=== PATIENT | male | born 1935 | race Caucasian/White ===

== ENCOUNTER → 2016-04-21 | Outpatient (CLI) | payer MEDICARE, MEDICAID ==
[~2016-04-21] VITALS: Ht 177.8 cm; Wt 68.2 kg
[~2016-04-21] MED LIST: ADALAT CC30 MG PO; ASPIRIN 32325 MG/TAB PO; ASPIRIN 81M81 MG/TA2 PO; BUMEX 1MG TA1 MG/TA1 PO; CIPRO 500MG TA500 MG PO; CORDARONE200 MG/TAB PO; COREG 3.123.125 MG/T PO; ELIQUIS 5MG PO; KLOR-CON M2020 MEQ PO; LIPITOR20 MG PO; LOPRESSOR 225 MG/TAB PO; NORVASC 5MG5 MG/TAB PO; PEPCID 20MG TAB20 MG PO; PLAVIX 75MG TAB75 MG PO; PRINIVIL10 MG PO; PRINIVIL2.5 MG PO; PROCARDIA XL 3030 MG PO; PROTONIX20 MG PO; RENVELA800 MG PO; TYLENOL 325MG325 MG PO; TYLENOL 500MG500 MG PO; XARELTO15 MG PO
[2016-04-21 08:26] VITALS: BP 128/62; PULSE 52
[2016-04-21 09:05] VITALS: BP 145/65; PULSE 60
== END ==
LOC: COL.RAD 04-19 10:00
DX: Z49.01 Encounter for fitting and adjustment of extracorporeal dialysis catheter (principal)

== ENCOUNTER 2016-07-16 10:03 | Day surgery (SDC) | payer MEDICARE, MEDICAID ==
[~2016-07-16] VITALS: Ht 180.3 cm; Wt 72.7 kg
[2016-07-16] VITALS (449 sets, daily range): BP systolic 106–136; BP diastolic 52–77; PULSE 50–68; TEMP 97.4; O2SAT 68–100
[2016-07-16 10:43] LABS: MEAN CELL VOLUME 98 fl (80.0-100.0); MEAN CORPUSCULAR HGB CONC 33 g/dl (33.0-37.0); MEAN PLATELET VOLUME 10.2 fl (7.4-10.4); PLATELET COUNT 150 K/mm3 (130-400); RED BLOOD COUNT 3.44 M/mm3 (4.20-5.60); REDCELL DISTRIBUTION WIDTH-CV 13.1 % (11.5-14.5); WHITE BLOOD COUNT 11.2 K/mm3 (4.8-10.8)
[2016-07-16 10:49] LABS: INR 1.2 (0.8-3.0); PROTHROMBIN TIME 13.3 SECONDS (9.7-12.8)
[2016-07-16 10:51] LABS: HEMATOCRIT 33.8 % (42.0-52.0); MEAN CORPUSCULAR HEMOGLOBIN 32 pg (27.0-31.0)
[2016-07-16 10:55] LABS: CALCIUM 8.2 mg/dL (8.4-10.2); POTASSIUM 4.5 mmol/L (3.4-5.0)
[2016-07-16 11:36] LABS: CREATININE, serum 4.93 mg/dL (0.66-1.25)
[2016-07-17] VITALS (401 sets, daily range): BP systolic 129–132; BP diastolic 55–86; PULSE 55–74; TEMP 97.7–98.5; O2SAT 79–100
[2016-07-17 05:54] LABS: MEAN CELL VOLUME 98 fl (80.0-100.0); MEAN CORPUSCULAR HGB CONC 33 g/dl (33.0-37.0); MEAN PLATELET VOLUME 10.4 fl (7.4-10.4); PLATELET COUNT 161 K/mm3 (130-400); RED BLOOD COUNT 3.27 M/mm3 (4.20-5.60); REDCELL DISTRIBUTION WIDTH-CV 13.2 % (11.5-14.5); WHITE BLOOD COUNT 10.5 K/mm3 (4.8-10.8)
[2016-07-17 06:16] LABS: HEMATOCRIT 31.9 % (42.0-52.0); HEMOGLOBIN 10.5 g/dl (13.5-18.0); MEAN CORPUSCULAR HEMOGLOBIN 32 pg (27.0-31.0)
[2016-07-17 06:17] LABS: CALCIUM 8.6 mg/dL (8.4-10.2); POTASSIUM 5.1 mmol/L (3.4-5.0)
[2016-07-17 06:21] LABS: CREATININE, serum 6.24 mg/dL (0.66-1.25)
== END 2016-07-17 10:40 | disposition home or self-care (01) ==
LOC: COL.CAR 10:03 → IMCU 12:44 → COL.CAR 07-17 10:40
PROVIDERS: Internal Medicine Interventional Cardiology
DX: I25.10 Atherosclerotic heart disease of native coronary artery without angina pectoris (principal); I50.22 Chronic systolic (congestive) heart failure; I08.3 Combined rheumatic disorders of mitral, aortic and tricuspid valves; I51.7 Cardiomegaly; Z87.891 Personal history of nicotine dependence; Z80.9 Family history of malignant neoplasm, unspecified; Z79.01 Long term (current) use of anticoagulants
CPT/HCPCS: OP; C1760; C1769; C1874; C9600; J0583; J2250; J3010; Q9967

== ENCOUNTER 2017-02-04 11:38 | Day surgery (SDC) | payer MEDICARE, MEDICAID ==
[~2017-02-04] VITALS: Ht 180.3 cm; Wt 67.7 kg
[2017-02-04] VITALS (7 sets, daily range): BP systolic 93–122; BP diastolic 54–73; PULSE 70–107; TEMP 97.7–97.9
[2017-02-04 12:54] LABS: MEAN CELL VOLUME 101 fl (80.0-100.0); MEAN CORPUSCULAR HGB CONC 32 g/dl (33.0-37.0); MEAN PLATELET VOLUME 9.6 fl (7.4-10.4); PLATELET COUNT 152 K/mm3 (130-400); RED BLOOD COUNT 3.26 M/mm3 (4.20-5.60); WHITE BLOOD COUNT 8.8 K/mm3 (4.8-10.8)
[2017-02-04 12:58] LABS: HEMATOCRIT 32.8 % (42.0-52.0); HEMOGLOBIN 10.6 g/dl (13.5-18.0); MEAN CORPUSCULAR HEMOGLOBIN 33 pg (27.0-31.0)
[2017-02-04 13:06] LABS: CALCIUM 9.2 mg/dL (8.4-10.2); POTASSIUM 4.2 mmol/L (3.4-5.0)
[2017-02-04 13:07] LABS: INR 1.1 (0.8-3.0); PROTHROMBIN TIME 12.6 SECONDS (9.7-12.8)
[2017-02-04 13:08] LABS: CREATININE, serum 6.59 mg/dL (0.66-1.25)
[2017-02-04] MEDS ORDERED: PRINIVIL10 MG PO (13:39)
[2017-02-05 04:49] VITALS: BP 116/57; PULSE 99; TEMP 98.3
[2017-02-05 08:00] VITALS: BP 119/55; PULSE 71; TEMP 98.4
[2017-02-05] MEDS ORDERED: CEPHALEXIN500 M1 PO (10:24)
[2017-02-05] MEDS ORDERED: LANOXIN 0.25M0.25 MG PO (10:24)
== END 2017-02-05 11:35 | disposition home or self-care (01) ==
LOC: COL.CAR 11:38 → MEDICAL 16:02 → COL.CAR 02-05 11:35
PROVIDERS: Internal Medicine Interventional Cardiology
DX: I49.5 Sick sinus syndrome (principal); I48.91 Unspecified atrial fibrillation; I50.22 Chronic systolic (congestive) heart failure; I08.1 Rheumatic disorders of both mitral and tricuspid valves; N18.9 Chronic kidney disease, unspecified; Z79.01 Long term (current) use of anticoagulants; Z87.891 Personal history of nicotine dependence; Z82.3 Family history of stroke
CPT/HCPCS: OP; J0690; J2250; J3010; J7030

== ENCOUNTER 2018-07-25 06:30 | Outpatient (CLI) | payer MEDICARE, MEDICAID ==
[2018-07-25] VITALS (9 sets, daily range): BP systolic 101–126; BP diastolic 75–102; PULSE 67–115; TEMP 98.2
[~2018-07-25] VITALS: Ht 180.3 cm; Wt 81.0 kg
[~2018-07-25 06:30] MED LIST changes: +CEPHALEXIN500 M1 PO; +LANOXIN 0.25M0.25 MG PO
--- NOTE | 2018-07-25 08:04 | NUR ---
Pt to procedure at this time.report to Lm Harkins.
--- NOTE | 2018-07-25 08:24 | NUR ---
SEE MERGE FOR MEDICATION ADMINISTRATION TIMES SEDATION ASSESSMENT DATA DURING AND POST PROCEDURE.
--- NOTE | 2018-07-25 11:41 | NUR ---
Discharge instructions given to pt.Pt verbalizes understanding.INT removed,catheter tip intact.Pt escorted out via wheelchair by this nurse.
== END 2018-07-25 11:42 | disposition home or self-care (01) ==
LOC: COL.CAR 06:30
DX: I87.1 Compression of vein (principal); N18.6 End stage renal disease; Z86.73 Personal history of transient ischemic attack (TIA), and cerebral infarction without residual deficits; I50.9 Heart failure, unspecified; Z99.2 Dependence on renal dialysis; Z79.01 Long term (current) use of anticoagulants; Z87.891 Personal history of nicotine dependence
CPT/HCPCS: J1644; J2250; J3010; Q9967

== ENCOUNTER → 2018-10-31 | Outpatient (CLI) | payer MEDICARE, MEDICAID | LOC: COL.RAD 10-30 14:15 | DX: N28.89 Other specified disorders of kidney and ureter (principal); N26.1 Atrophy of kidney (terminal) ==

== ENCOUNTER → 2019-06-13 | Outpatient (CLI) | payer MEDICARE, MEDICAID | LOC: ZCOL.LAB 09:47 | DX: Z03.818 Encounter for observation for suspected exposure to other biological agents ruled out (principal) ==

== ENCOUNTER 2019-07-03 06:10 | Outpatient (CLI) | payer MEDICARE, MEDICAID ==
[~2019-07-03] VITALS: Ht 180.3 cm; Wt 83.0 kg
[2019-07-03] VITALS (8 sets, daily range): BP systolic 138–158; BP diastolic 95–110; PULSE 113–126; TEMP 97.3–98.2
[~2019-07-03 06:10] MED LIST changes: +ELIQUIS 2.5 PO; -ELIQUIS 5MG PO
[2019-07-03] MEDS ORDERED: COREG 3.123.125 MG/T PO (06:29)
[2019-07-03] MEDS ORDERED: LIPITOR 10MG10 MG PO (06:30)
--- NOTE | 2019-07-03 08:06 | NUR ---
I called radiology at approx 0715 to inform radiologist of pt's heart rate and rhythm. laborer driver nurses updated on pt's rate and rhythm also. Dr. Lopez came to see patient at about 0745. Pt had reported he had taken eliquis last evening, however after some thought pt reported to Dr. Lopez that he did not take any meds yesterday, and last took his eliquis tuesday evening.
--- NOTE | 2019-07-03 08:08 | NUR ---
SEE MERGE DOCUMENTATION FOR MEDICATION ADMINISTRATION TIMES AND INTRA/POST PROCEDURE SEDATION ASSESSMENTS. PT STATES TO PHYSICIAN THAT LAST ELIQUIS DOSE TAKEN ON 07/01/19. PHYSICIAN OK WITH PROCEEDING.
[2019-07-03] MEDS ORDERED: PRINIVIL5 MG PO (09:19)
--- NOTE | 2019-07-03 09:45 | NUR ---
Pt arrived back in [facility] at 0915, he is awake, alert, relaxing on stretcher, puncture site to left upper arm is dressed with bandaid. no evidence of bleeding or hematoma present. Dr. Lopez at bs at this time to recheck patient and discuss result of study with patient. Dr. Lopez made aware of pt's continued tachycardia and hypertension. Per Dr. Lopez it is okay if pt takes his medication for bp and hr when he gets home. pt states plans to take it as soon as he gets home. Pt denies any sob, dizziness, cp or other sx. Pt also instructed to restart his eliquis this evening.
--- NOTE | 2019-07-03 11:30 | NUR ---
Pt ready for discharge, puncture site to fistula in left upper arm remains free of bleeding and hematoma. iv dc'd with cath intact, dressing applied. I reviewed dc/fu instructions with pt, he reports will take his carvedilol and lisinopril when he gets home and will monitor his heart rate and bp, he will be seeing dialysis clinic tomorrow. He is also instructed to resume taking his eliquis this evening. Pt is ambulatory with fairly steady gait to exit, accompanied by this RN. Pt did deny ride in wheelchair. Pt did not receive moderate sedation today.
== END 2019-07-03 11:30 | disposition home or self-care (01) ==
LOC: COL.CAR 06:10
DX: T82.858A Stenosis of other vascular prosthetic devices, implants and grafts, initial encounter (principal); Z86.73 Personal history of transient ischemic attack (TIA), and cerebral infarction without residual deficits; Z99.2 Dependence on renal dialysis; I50.9 Heart failure, unspecified; N18.6 End stage renal disease; Z79.01 Long term (current) use of anticoagulants; Z87.891 Personal history of nicotine dependence
CPT/HCPCS: J1200; J1644; Q9967

== ENCOUNTER → 2019-07-10 | Outpatient (CLI) | payer MEDICARE, MEDICAID ==
[~2019-07-10] MED LIST changes: +LIPITOR 10MG10 MG PO; +PRINIVIL5 MG PO
== END ==
LOC: COL.VAS 10:00
DX: N18.6 End stage renal disease (principal)

== ENCOUNTER 2019-10-15 06:22 | Inpatient (IN) | payer MEDICARE, MEDICAID ==
[~2019-10-15] VITALS: Ht 180.3 cm; Wt 81.5 kg
[2019-10-15 07:19] LABS: BASO # 0.1 (0.0-0.2); BASO % 0.6 % (0.0-2.0); EOS # 0.6 (0.0-0.7); EOS % 5.5 % (0-4.0); GRAN # 7.4 (1.4-6.5); GRAN % 67.8 % (42.2-75.2); HEMATOCRIT 42.8 % (42.0-52.0); HEMOGLOBIN 13.9 g/dl (13.5-18.0); LYMPH # 1.7 (1.2-3.4); LYMPH % 15.8 % (20.0-51.0); MEAN CELL VOLUME 100 fl (80.0-100.0); MEAN CORPUSCULAR HEMOGLOBIN 32 pg (27.0-31.0); MEAN CORPUSCULAR HGB CONC 33 g/dl (33.0-37.0); MEAN PLATELET VOLUME 10.3 fl (7.4-10.4); MONO # 1.1 (0.1-0.6); PLATELET COUNT 153 K/mm3 (130-400); REDCELL DISTRIBUTION WIDTH-CV 15.3 % (11.5-14.5)
[2019-10-15 07:22] LABS: INR 1.2 (0.8-3.0); PROTHROMBIN TIME 13.2 SECONDS (9.7-12.8)
[2019-10-15 07:24] LABS: PARTIAL THROMBOPLASTIN TIME 33.9 SECONDS (26.0-37.0)
[2019-10-15 07:30] LABS: ALBUMIN 4.1 gm/dL (3.5-5.0); CALCIUM 9.7 mg/dL (8.4-10.2); CREATININE, serum 6.08 (0.66-1.25); MAGNESIUM 2.2 mg/dL (1.6-2.3); PHOSPHOROUS 5.2 mg/dL (2.5-4.5); POTASSIUM 4.8 mmol/L (3.4-5.0); TOTAL PROTEIN 7.8 gm/dL (6.4-8.2)
[2019-10-15 07:41] LABS: TROPONIN-I 0.031 ng/mL (0.000-0.035)
[2019-10-15 09:05] VITALS: BP 132/62; PULSE 87; TEMP 97.5
--- NOTE | 2019-10-15 09:47 | NUR ---
PT LAYING IN BED, ASSESSMENT PERFORMED, SPIDER BITE NOTED, PT AOX4, PT MUMBLES, LA EDEMETOUS PHYSICIAN AWARE, NO OTHER NEEDS AT THIS TIME.
[2019-10-15] MEDS ORDERED: AURYXIA1 GM PO (09:56)
[2019-10-15 11:18] VITALS: BP 118/72; PULSE 80; TEMP 98
--- NOTE | 2019-10-15 12:25 | NUR ---
PT TAKEN DOWN TO DIALYSIS VIA WHEELCHAIR WITH CHART.
[2019-10-15 16:00] VITALS: BP 118/61; PULSE 89
--- NOTE | 2019-10-15 16:22 | NUR ---
pt returned from dialysis
--- NOTE | 2019-10-15 17:44 | NUR ---
PT AOX4, DIALYSIS OCCURRED TODAY, PT REPORTS ITCHING AT SPIDER BITE SITE. PT LUE EDEMETOUS. PT PLEASANT, VITALS STABLE, HR STABLE SINCE ADMISSION TO FLOOR. NO OTHER PAIN OR DISCOMFORT, NO OTHER NEEDS AT THIS TIME.
--- NOTE | 2019-10-15 19:05 | NUR ---
Received report from Nunu. Seen patient awake, lying in bed. On left arm restriction. With dialysis fistula on left upper arm. With INT on right forearm. He denies pain. Call light within reach.
[2019-10-15 19:56] VITALS: BP 114/79; PULSE 78; TEMP 98.2
--- NOTE | 2019-10-15 20:00 | NUR ---
Pharmacists called to verify regarding dosage of Coreg. He said that it was usually twice a day but in [facility] it was once a day only. Verified to patient but he cannot remember how much Coreg is he taking. On patient's chart, he has list of medicines and Coreg was listed as once a day. Upon checking on doctor's note, it says there that they reduced the strength of Coreg due to falls and severe hypotension. This nurse tried to call back Pharmacy but they are already close. Will try to call them back benjamin or will endorse to day shift nurse.
[2019-10-16 00:20] VITALS: BP 113/75; PULSE 82; TEMP 97.9
[2019-10-16 03:16] VITALS: BP 123/78; PULSE 91; TEMP 97.6
--- NOTE | 2019-10-16 06:28 | NUR ---
Patient had uneventful night. He denies pain. Heart rate has been stable. Called back pharmacy to clarify Coreg and she said that she already fixed it as she saw the notes of Dr. Flaherty.
[2019-10-16 07:30] VITALS: BP 121/68; PULSE 95; TEMP 98.3
--- NOTE | 2019-10-16 08:08 | NUR ---
PT IN ROOM, DENIES PAIN OR DISCOMFORT, REFUSED TO ELEVATE LEFT ARM, REFUSED TO WEAR SCD'S DUE TO WEARING THEM ALL THROUGHOUT THE NIGHT, VITALS REVIEWED, MEDCIATONS GIVEN, IV FLUSHED, ASSESSMENT PERFORMED. AFIB RATE CONTROLLED AT THIS TIME. NO OTHER NEEDS.
--- NOTE | 2019-10-16 09:30 | NUR ---
RECIEVED CALL FROM TELE ABOUT ELEVATED HR IN 120'S. PT REPORTED JUST GETTING UP TO GO TO BATHROOM, SETTLED IN BED NOW, NOT REPORTING SYMTPOMS, HR GOING BACK DOWN.
--- NOTE | 2019-10-16 10:36 | NUR ---
SW met with the patient to discuss discharge plan. The patient lives in [place] with his , Avis (ph#[phone]). He reports independence with ADLs and does not have any DME. The patient reports that his PCP used to be Dr. Kemal Han, but that he does not have a PCP at this time and needs a new one. He states that he would be interested in a PCP in [place]. MIHCAEL provided the patient a list of providers in [place]. The patient would like some time to look the list over. The patient receives his medications through a [email or web address] mail order and at [facility]. He reports no difficulties obtaining his meds. The patient does not have advanced directives completed, but he was interested in obtaining a form for DPOA-HC. MICHAEL provided. The patient plans to return back home with his upon discharge. SW attempted to contact the patient's to review d/c plan. The number states that the number is disconnected, been changed, or out of network. MICHAEL then contacted and updated the patient's son, Edwar. Edwar provided MICHAEL with another phone number for Avis (ph#[phone]). Edwar reports that this phone may be out of minutes. SW attempted to contact that number. The number did not ring. SW to continue to follow.
[2019-10-16] MEDS ORDERED: CEPHALEXIN500 M1 PO (11:32)
[2019-10-16] MEDS ORDERED: DIGITEK0.125 MG PO (11:33)
--- NOTE | 2019-10-16 11:59 | NUR ---
First visit from the manager lsw. No needs right now.
--- NOTE | 2019-10-16 13:03 | NUR ---
PT LEFT ESCORTED BY ALEX CASTILLO. PT REFUSED WHEELCHAIR, PT BELONGINGS BROUGHT WITH PT. PT DISCHARGE EDUCATION PROVIDED, IV DISCONTINUED, NO QUESTIONS AT THIS TIME.
== END 2019-10-16 12:55 | disposition home or self-care (01) | DRG 308 ==
LOC: COL.ER 06:22 → MEDICAL 08:25
PROVIDERS: Emergency Medicine; ADMIT Internal Medicine Nephrology
PROC: 5A1D70Z Performance of Urinary Filtration, Intermittent, Less than 6 Hours Per Day (ICD-10-PCS; principal; 2019-10-15)
DX: I48.20 Chronic atrial fibrillation, unspecified (principal); N18.6 End stage renal disease; I50.23 Acute on chronic systolic (congestive) heart failure; I13.0 Hypertensive heart and chronic kidney disease with heart failure and stage 1 through stage 4 chronic kidney disease, or unspecified chronic kidney disease; N18.4 Chronic kidney disease, stage 4 (severe); N13.30 Unspecified hydronephrosis; D63.1 Anemia in chronic kidney disease; I95.9 Hypotension, unspecified; I25.10 Atherosclerotic heart disease of native coronary artery without angina pectoris; I42.8 Other cardiomyopathies; T63.331A Toxic effect of venom of brown recluse spider, accidental (unintentional), initial encounter; E78.5 Hyperlipidemia, unspecified; N40.0 Benign prostatic hyperplasia without lower urinary tract symptoms; Z79.01 Long term (current) use of anticoagulants; Z99.2 Dependence on renal dialysis; Z86.73 Personal history of transient ischemic attack (TIA), and cerebral infarction without residual deficits; Z85.828 Personal history of other malignant neoplasm of skin; Z87.891 Personal history of nicotine dependence
CPT/HCPCS: J1644; J2916; J7030

== ENCOUNTER 2019-10-25 09:43 | Day surgery (SDC) | payer MEDICARE, MEDICAID ==
[2019-10-25] VITALS (7 sets, daily range): BP systolic 112–192; BP diastolic 48–99; PULSE 63–85; TEMP 97.8–98.9
[~2019-10-25] VITALS: Ht 180.3 cm; Wt 79.0 kg
[~2019-10-25 09:43] MED LIST changes: +AURYXIA1 GM PO; +DIGITEK0.125 MG PO
[2019-10-25] MEDS ORDERED: LANOXIN 0.120.125 MG PO (10:36)
--- NOTE | 2019-10-25 10:43 | NUR ---
TO RM AT 0956- CALL LIGHT IN REACH SON WILL BE CALLED AT TIME OF BUYERS' AGENT.
[2019-10-25 10:52] LABS: CALCIUM 9.4 mg/dL (8.4-10.2); CREATININE, serum 4.34 (0.66-1.25); POTASSIUM 4.6 mmol/L (3.4-5.0)
--- NOTE | 2019-10-25 10:57 | NUR ---
DR STRONG INTO TALK WITH PATIENT AND STATED HE COULD GO HOME LONG HIS SON WOULD BE THER OVERNIGHT.
--- NOTE | 2019-10-25 13:45 | NUR ---
TO RM 1 PER CART FROM PACU. DROWSY, BUT ANSWERS QUESTIONS AND FALLS BACK TO SLEEP. DRESSING EXOFIN DRESSING CLEAN DRY AND INTACT. NO SIGNS OF PAIN OR DISCOMFORT. RESTING QUIETLY
--- NOTE | 2019-10-25 14:00 | NUR ---
MORE AWAKE AND TALKING WITH STAFF. RECEIVED WATER AND TAKING SIPS. CONTINUES TO DENY PAIN OR DISCOMFORT.
--- NOTE | 2019-10-25 14:15 | NUR ---
VSS. PATIENT ALERT AND LOOKING AROUND ROOM. PATIENT DRINKS WATER WITHOUT PROBLEMS. RIGHT ARM SITE IS CD&I.
--- NOTE | 2019-10-25 14:25 | NUR ---
REPORT GIVEN TO BLANQUITA JOHNSON
--- NOTE | 2019-10-25 14:35 | NUR ---
VSS ON ROOM AIR. PATIENT GIVEN COFFEE AND APPLESAUCE TO EAT. PATIENT DENIES C/O'S. 1440 PATIENT EATS APPLE SAUCE WITHOUT PROBLEMS. AND DRINKS COFFEE WITHOUT PROBLEMS. PATIENT STATES HIS SON LIVES 10 MILES AWAY. AND SON IS TAKING HIM HOME.
--- NOTE | 2019-10-25 14:45 | NUR ---
VSS. PATIENT DENIES DISCOMFORT AND NAUSEA. PATIENT TALKS WITHOUT STAFF.
--- NOTE | 2019-10-25 15:00 | NUR ---
VSS ON ROOM AIR. PATIENT ALERT AND TALKING. FISTULA SITE TO RIGHT ARM CD&I. 1510 DISCHARGE INSTRUCTIONS GIVEN VERBALLY AND DISCHARGE PACKET GIVEN TO PATIENT. QUESTIONS ANWSERED AND PATIENT VOICED UNDERSTANDING. IV SITE DC'D CATHETER INTACT. PRESSURE AND BANDAGE APPLIED. 1515 ASSISTED PATIENT WITH DRESSING. PATIENT WAITING FOR SON TO ARRIVE. 1535 PATIENT DISCHARGED PER WHEEL CHAIR ACCOMPANIED BY AMB STAFF TO PRIVATE VECHILE DRIVEN BY SON.
== END 2019-10-25 15:35 | disposition home or self-care (01) ==
LOC: SDCO 09:43
PROVIDERS: Surgery
DX: I13.2 Hypertensive heart and chronic kidney disease with heart failure and with stage 5 chronic kidney disease, or end stage renal disease (principal); N18.6 End stage renal disease; I50.9 Heart failure, unspecified; I87.1 Compression of vein; Z79.01 Long term (current) use of anticoagulants; E78.00 Pure hypercholesterolemia, unspecified; Z86.73 Personal history of transient ischemic attack (TIA), and cerebral infarction without residual deficits; N17.9 Acute kidney failure, unspecified; I25.10 Atherosclerotic heart disease of native coronary artery without angina pectoris; I48.91 Unspecified atrial fibrillation; M19.90 Unspecified osteoarthritis, unspecified site; Z99.2 Dependence on renal dialysis; Z85.828 Personal history of other malignant neoplasm of skin
CPT/HCPCS: J0690; J1100; J1644; J1885; J2405; J2704; J3010; J7030

== ENCOUNTER 2020-04-15 10:06 | Outpatient (CLI) | payer MEDICARE, MEDICAID ==
[2020-04-15] VITALS (7 sets, daily range): BP systolic 154–183; BP diastolic 76–99; PULSE 92–117; TEMP 98
[~2020-04-15] VITALS: Ht 180.3 cm; Wt 79.8 kg
[~2020-04-15 10:06] MED LIST changes: +LANOXIN 0.120.125 MG PO
--- NOTE | 2020-04-15 14:07 | NUR ---
SEE MERGE FOR ALL MEDICATION ADMINISTRATION TIMES, INTRA AND POST SEDATION ASSESSMENT
--- NOTE | 2020-04-15 14:30 | NUR ---
REport from Marcelle JOHNSON. Transferred by be from [employer]. VSS at baseline. Bandaid CD&I to right upper arm fistula
--- NOTE | 2020-04-15 15:32 | NUR ---
INT discontinued intact. Discharge instructions given
--- NOTE | 2020-04-15 16:00 | NUR ---
Transferred to private car by kevin
== END 2020-04-15 16:26 | disposition home or self-care (01) ==
LOC: COL.CAR 10:06
DX: T82.858A Stenosis of other vascular prosthetic devices, implants and grafts, initial encounter (principal); N18.6 End stage renal disease; I50.22 Chronic systolic (congestive) heart failure; Z99.2 Dependence on renal dialysis; Z85.828 Personal history of other malignant neoplasm of skin; Z86.73 Personal history of transient ischemic attack (TIA), and cerebral infarction without residual deficits; Z87.891 Personal history of nicotine dependence
CPT/HCPCS: C1725; C1769; C1894; J1644; J2250; J3010; Q9967

== ENCOUNTER 2020-09-17 12:13 | Outpatient (CLI) | payer MEDICARE, MEDICAID ==
[2020-09-17] VITALS (8 sets, daily range): BP systolic 152–199; BP diastolic 89–127; PULSE 92–116; TEMP 97.2
[~2020-09-17] VITALS: Ht 180.3 cm; Wt 77.9 kg
--- NOTE | 2020-09-17 14:13 | NUR ---
Pt to procedure at this time.report to NALDO<RN>
--- NOTE | 2020-09-17 15:44 | NUR ---
Pt returned from procedure,report from Lm Zamora.
--- NOTE | 2020-09-17 18:04 | NUR ---
Discharge instructions given to pt.pt verbalizes understanding.INT removed,cathetr tip intact.Pt escorted out via wheelchair by ALEX Sr.
== END 2020-09-17 18:13 ==
LOC: COL.CAR 12:13
DX: T82.858A Stenosis of other vascular prosthetic devices, implants and grafts, initial encounter (principal); N17.9 Acute kidney failure, unspecified; I50.21 Acute systolic (congestive) heart failure; Z20.822 Contact with and (suspected) exposure to COVID-19; Z85.828 Personal history of other malignant neoplasm of skin
CPT/HCPCS: C1725; C1769; C1894; J1644; Q9967

== ENCOUNTER 2021-06-16 10:47 | Outpatient (CLI) | payer MEDICARE, MEDICAID ==
[2021-06-16] VITALS (8 sets, daily range): BP systolic 102–139; BP diastolic 85–99; PULSE 101–120; TEMP 98.1
[~2021-06-16] VITALS: Ht 180.3 cm; Wt 74.8 kg
[2021-06-16] MEDS ORDERED: BUMEX2 MG PO (11:41)
[2021-06-16] MEDS ORDERED: RENVELA800 MG PO (11:42)
[2021-06-16] MEDS ORDERED: COUMADIN 1MG1 MG/TAB PO (11:42)
--- NOTE | 2021-06-16 14:16 | NUR ---
See merge for all medication administration, intervention, assessment, and vital sign times. Moderate sedation assessment completed prior to procedure, documented during procedure.
--- NOTE | 2021-06-16 17:32 | NUR ---
Pt has done well during his recovery. Pt has remained awake and alert, no evidence of bleeding at fistula puncture site. site remains covered wtih clean dry and intact dressing. I have reviewed dc and fu instructions with pt who verbalized understanding and denied questions. IV is dc'd with cath intact. Pt is up and around in room with steady gait with kraft. to exit via wheelchair.
== END 2021-06-16 18:29 | disposition home or self-care (01) ==
LOC: COL.CAR 10:47
DX: T82.858A Stenosis of other vascular prosthetic devices, implants and grafts, initial encounter (principal); N18.6 End stage renal disease; Z99.2 Dependence on renal dialysis; Z87.891 Personal history of nicotine dependence
CPT/HCPCS: C1725; C1769; C1894; J1644; J2250; J3010

== ENCOUNTER 2021-06-26 17:03 | Inpatient (IN) | payer MEDICARE, MEDICAID ==
[~2021-06-26] VITALS: Ht 180.3 cm; Wt 71.1 kg
[~2021-06-26 17:03] MED LIST changes: +BUMEX2 MG PO; +COUMADIN 1MG1 MG/TAB PO
[2021-06-26 17:53] LABS: BASO % 0.2 % (0.0-2.0); EOS # 0.1 K/mm3 (0.0-0.7); EOS % 0.7 % (0.0-4.0); GRAN # 11.5 K/mm3 (1.4-6.5); GRAN % 83.5 % (42.2-75.2); HEMATOCRIT 40.6 % (42.0-52.0); HEMOGLOBIN 13.6 g/dl (13.5-18.0); LYMPH # 0.8 K/mm3 (1.2-3.4); LYMPH % 5.4 % (20.0-51.0); MEAN CELL VOLUME 97 fl (80.0-100.0); MEAN CORPUSCULAR HEMOGLOBIN 33 pg (27-31); MEAN CORPUSCULAR HGB CONC 34 g/dl (33.0-37.0); MEAN PLATELET VOLUME 10.8 fl (7.4-10.4); MONO # 1.3 K/mm3 (0.1-0.6); MONO % 9.5 % (1.7-9.3); PLATELET COUNT 188 K/mm3 (130-400); RED BLOOD COUNT 4.17 M/mm3 (4.20-5.60)
[2021-06-26 18:12] LABS: ALBUMIN 3.5 gm/dL (3.4-4.8); BILIRUBIN,TOTAL 1.4 mg/dL (0.2-1.2); CALCIUM 9.2 mg/dL (8.4-10.2); CREATININE, serum 4.87 mg/dL (0.72-1.25); POTASSIUM 4.9 mmol/L (3.5-4.5)
[2021-06-26 18:22] LABS: TROPONIN-I 0.299 ng/mL (0.00-0.033)
[2021-06-26 19:26] LABS: ARTERIAL BLD GAS O2 SATURATION 96.5 % (92-100); ARTERIAL BLD GAS TCO2 CT 26.4; ARTERIAL BLOOD GAS BASE EXCESS 1.7 (-2-2); ARTERIAL BLOOD GAS HCO3 25.3 meq/L (22-26); ARTERIAL BLOOD GAS PCO2 36.5 mmHg (35-45); ARTERIAL BLOOD GAS PO2 85.8 mmHg (80-100); ARTERIAL BLOOD GAS pH 7.46 (7.35-7.45)
[2021-06-26 19:32] LABS: INR 1.5 (0.8-3.0)
[2021-06-26] MEDS ORDERED: COREG 6.256.25 MG/TA PO (20:56)
[2021-06-26] MEDS ORDERED: PRINIVIL5 MG PO (20:57)
[2021-06-26 21:30] VITALS: BP 136/94; PULSE 92; TEMP 97.7
--- NOTE | 2021-06-26 23:05 | NUR ---
Patient arrived to medical unit from ER at approximately 2130. Patient had IV fluids running. Disconnected IV fluids upon arrival to medical unit. Patient was incontinent, and agreeable to take off wet clothing. Skin care provided. Redness noted to left buttock, blanchable. Denied pain and discomfort. Had been on oxygen at 2 L/min via NC. RT turned down to 1 L/min via NC. LS CTA. HRI. Telemetry in place: paced, irregular. BSAx4. Abdomen flat. Patient thin, skin dry. Called and talked to Dr. Flaherty at apprixmately 2207 to discuss orders. Did not want IV fluid running, and thankful that fluids were stopped. Went over med rec, orders restarted/held per orders. Patient voices no questions, needs, or concerns at this time. In bed with call light within reach. Bed alarm on.
[2021-06-27] VITALS (9 sets, daily range): BP systolic 113–158; BP diastolic 62–90; PULSE 76–107; TEMP 97.5–98.4
--- NOTE | 2021-06-27 05:53 | NUR ---
Patient has been in bed with eyes closed. Denies pain and discomfort. Voices no questions, needs, or concerns at this time. In bed with call light within reach. Bed alarm on.
--- NOTE | 2021-06-27 07:09 | NUR ---
PT SLEEPING UPON ENTRY TO INTRODUCE SELF.
--- NOTE | 2021-06-27 09:59 | NUR ---
PT ALERT IN ROOM, FINISHING BREAKFAST. PT EXPRESSED PAIN IN BACK, PRN MEDICATION GIVEN PER ORDERS. AM MED PASS COMPLETED, ASSESSMENT COMPLETED TO BEST OF ABILITY. DIMINISHED LOBES BILATERALLY, EDEMA NOTED IN LEFT HAND. PT IN TOO MUCH PAIN TO ROLL FOR COCCYX ASSESSMENT, WILL TRY AFTER MEDICATION METABOLIZES. PT ABLE TO EXPRESS NEEDS, GIVEN WARM BLANKET. CALL LIGHT WITHIN REACH.
--- NOTE | 2021-06-27 11:52 | NUR ---
NOTIFIED GAYATRI WHEELER OF CRITICAL TROPONIN LAB RESULT 0.219
--- NOTE | 2021-06-27 12:03 | NUR ---
CALLED RADIOLOGY TO RELAY ECHO ORDERS, TOLD LAST ECHO WAS AT 1100 AND TECH WILL NOT BE BACK UNTIL TUESDAY AM.
[2021-06-27 12:05] LABS: BASO % 0.2 % (0.0-2.0); EOS # 0.1 K/mm3 (0.0-0.7); GRAN # 9.1 K/mm3 (1.4-6.5); GRAN % 81.6 % (42.2-75.2); HEMATOCRIT 40.7 % (42.0-52.0); HEMOGLOBIN 13.3 g/dl (13.5-18.0); LYMPH # 0.9 K/mm3 (1.2-3.4); LYMPH % 7.7 % (20.0-51.0); MEAN CELL VOLUME 99 fl (80.0-100.0); MEAN CORPUSCULAR HEMOGLOBIN 32 pg (27-31); MEAN CORPUSCULAR HGB CONC 33 g/dl (33.0-37.0); MEAN PLATELET VOLUME 10.6 fl (7.4-10.4); PLATELET COUNT 190 K/mm3 (130-400); RED BLOOD COUNT 4.11 M/mm3 (4.20-5.60)
--- NOTE | 2021-06-27 12:33 | NUR ---
Bag Turner offered a prayer and support with patient.
[2021-06-27 14:01] LABS: ALBUMIN 3.2 gm/dL (3.4-4.8); CALCIUM 9.1 mg/dL (8.4-10.2); CREATININE, serum 5.27 mg/dL (0.72-1.25); PHOSPHOROUS 5.9 mg/dL (2.3-4.7); POTASSIUM 4.6 mmol/L (3.5-4.5)
--- NOTE | 2021-06-27 14:29 | NUR ---
gas systems worker met with patient is discuss discharge plan. Patient states that he lives at home alone in [facility]. Patient reports to being fully independent with his ADL's and utilizes a cane to assist with mobility. Patient does not have home oxygen needs but is currently on oxygen in room. PCP is Dr. Arreguin and he utilizes [facility] for medications with no cost difficulty. Patient reports that he does not have a DPOA-HC. He is not and has one child; Edwar [phone]. Patient states that he does have HH services coming in to his home to work on PT/OT but could not remember which company it is. Discharge plan: Home w/ HH pending PT/OT
--- NOTE | 2021-06-27 15:30 | NUR ---
PATIENT TOLERATED HD TX WITH 1.2L OF FLUID REMOVED, ATTEMPTED INCREASED FLUID REMOVAL WITH RX BUT SETUP CLOTTED WITH 1HR 14MINS LEFT OF RX REMAINING. PATIENT'S BLOOD WAS RETURNED. DR. GREY NOTIFIED & OK TO DC TX EARLY FOR TODAY.
--- NOTE | 2021-06-27 17:37 | NUR ---
PT CONTINUES ON PLAN OF CARE, RECEIVED DIALYSIS TODAY. NO SIGNIFICANT CHANGES NOTED IN PT STATUS AT THIS TIME. PT ABLE TO AMBULATE TO WHEEL CHAIR USING CANE. PT DROWSY, AROUSABLE TO VERBAL CUES.
--- NOTE | 2021-06-27 18:10 | NUR ---
NOTIFIED BY TELEMONITOR TECH PT HAD RUN OF VTACH, 5 BEATS, NOW IN AFIB/AFLUTTER.
--- NOTE | 2021-06-27 21:00 | NUR ---
Pt taken down to CT in wheelchair. Off the tele monitor until returning to the room.
--- NOTE | 2021-06-27 22:50 | NUR ---
Pt drowsy, but alert to speech. Able to answer orientation questions correctly, but quickly falls back asleep. Reported back pain. Repositioned the pt in bed with assistance and adjusted the heating pad under his back. Pt reports relief and is now resting quietly. Continuing to monitor I&O and maintaining the 1500 fluid restriction. Pt has not voided yet this evening, will continue to assess. Shift assessment completed. Medications administered per orders and education provided. Spoke with pharmacy in regards to verifying a new coumadin order. The pharmacist requested a INR be drawn at 0500 and the coumadin dose will be dosed based off of the pt's INR value and given tomorrow evening. Pt tolerating PO. No edema noted. AV fistula in right arm is clean/dry and covered in gauze dressing. No edema/redness/drainage. Thrill palpated and bruit auscultated. Right upper arm restriction enforced. Left upper arm has previous fistula. Site is clean and dry. Scattered bruising and scabs noted on BLE. Scars noted on sacral area from fully healed previous wound. Continuing to turn and reposition pt every 2 hours. VS stable. Pt is currently in a-fib, running in the 70's. Denies SOB/diaphoresis/chest pain. Lungs sounds are dimished/clear/unlabored. No fluids currently running. Pt recieved newly ordered levaquin around 1900. Pt reports no questions, will continue to monitor.
--- NOTE | 2021-06-28 02:27 | NUR ---
Prn tylenol administered per orders for back pain and pt repositioned. Will reassess pain.
[2021-06-28 03:23] VITALS: BP 153/74; PULSE 92; TEMP 98.3
--- NOTE | 2021-06-28 04:52 | NUR ---
No adverse events overnight. Pt continues to be drowsy, but is alert to speech and oriented. Total output overnight was 100 ml. Pt reported back pain earlier this morning. Administered prn tylenol and repositioned pt and pt reported relief. VS remain stable. BP runs elevated. Pt satting in upper 90's on room air. Denies chest pain/SOB. Denies dizziness/lightheadedness. Pt reports no questions at this time, will continue to monitor.
--- NOTE | 2021-06-28 06:14 | NUR ---
Pt had another void. Total of 250 ml out overnight. 225 ml taken in PO.
[2021-06-28 06:52] LABS: BASO % 0.2 % (0.0-2.0); EOS # 0.1 K/mm3 (0.0-0.7); EOS % 1.1 % (0.0-4.0); GRAN # 8.6 K/mm3 (1.4-6.5); GRAN % 78.9 % (42.2-75.2); HEMATOCRIT 43.9 % (42.0-52.0); HEMOGLOBIN 13.8 g/dl (13.5-18.0); LYMPH # 0.9 K/mm3 (1.2-3.4); LYMPH % 8.4 % (20.0-51.0); MEAN CELL VOLUME 102 fl (80.0-100.0); MEAN CORPUSCULAR HEMOGLOBIN 32 pg (27-31); MEAN CORPUSCULAR HGB CONC 31 g/dl (33.0-37.0); MEAN PLATELET VOLUME 11.1 fl (7.4-10.4); MONO # 1.2 K/mm3 (0.1-0.6); MONO % 10.8 % (1.7-9.3); PLATELET COUNT 186 K/mm3 (130-400); RED BLOOD COUNT 4.29 M/mm3 (4.20-5.60); REDCELL DISTRIBUTION WIDTH-CV 14.1 % (11.5-14.5)
[2021-06-28 06:57] LABS: INR 1.4 (0.8-3.0)
[2021-06-28 07:12] LABS: ALBUMIN 3.3 gm/dL (3.4-4.8); CALCIUM 8.9 mg/dL (8.4-10.2); CREATININE, serum 4.22 mg/dL (0.72-1.25); PHOSPHOROUS 4.2 mg/dL (2.3-4.7); POTASSIUM 4.4 mmol/L (3.5-4.5)
[2021-06-28 07:13] VITALS: BP 146/77; PULSE 109; TEMP 97.8
[2021-06-28 11:29] VITALS: BP 129/96; PULSE 92; TEMP 97.6
[2021-06-28 15:13] VITALS: BP 141/97; PULSE 102; TEMP 97.4
[2021-06-28 20:49] VITALS: BP 132/85; PULSE 83; TEMP 97.9
--- NOTE | 2021-06-28 20:52 | NUR ---
Assessed pt's VS and the oxygen levels were sitting in the upper 80's. Placed pt on 2L NC and pt is now satting in upper 90's. Notified RT. Will continue to monitor and titrate as needed.
--- NOTE | 2021-06-28 22:54 | NUR ---
Pt alert and oriented this evening, slightly drowsy. Denies pain. Pt voided 100 ml into urinal. Also had a small incontinent void. Repositioned pt in bed and turned. Heating pad currently on. Monitoring I&O and enforcing the 1500 fluid restriction. Enforcing ALONSO restriction. Shift assessment performed. Medications administered per orders and education provided. Pt has small scarring on the sacral area from a fully healed wound. Continuing to reposition pt every 2 hours. Pt was satting in the upper 80's at 2000, placed pt on 2L NC and pt is now satting above 95%. VS stable. HR is running in 90's. AV fistula on ALONSO is covered in gauze dressing that is clean/dry. Thrill palpated and bruit auscultated. Lungs sound clear. No pitting edema noted. Pt reports no questions at this time, will continue to monitor.
[2021-06-29] VITALS (12 sets, daily range): BP systolic 125–161; BP diastolic 61–96; PULSE 75–93; TEMP 97.4–98.7
--- NOTE | 2021-06-29 04:45 | NUR ---
No adverse events overnight. Alert and oriented, still drowsy, resting now. Pt NPO since 0000. Monitoring I&O, maintaining fluid restrcition. SCD's on. Pt voided approximately 100 ml overnight with one small incontinent void as well. VS stable. BP runs elevated. 2L NC remains on, pt satting in upper 90%. Continuing to reposition pt every 2 hours. Pt reports no questions at this time, will continue to monitor.
[2021-06-29 07:04] LABS: BASO % 0.2 % (0.0-2.0); EOS # 0.2 K/mm3 (0.0-0.7); EOS % 1.6 % (0.0-4.0); GRAN % 70.4 % (42.2-75.2); HEMATOCRIT 43.7 % (42.0-52.0); HEMOGLOBIN 14.3 g/dl (13.5-18.0); LYMPH # 1.3 K/mm3 (1.2-3.4); LYMPH % 13.3 % (20.0-51.0); MEAN CELL VOLUME 101 fl (80.0-100.0); MEAN CORPUSCULAR HEMOGLOBIN 33 pg (27-31); MEAN CORPUSCULAR HGB CONC 33 g/dl (33.0-37.0); MEAN PLATELET VOLUME 10.6 fl (7.4-10.4); MONO # 1.4 K/mm3 (0.1-0.6); PLATELET COUNT 179 K/mm3 (130-400); RED BLOOD COUNT 4.34 M/mm3 (4.20-5.60); REDCELL DISTRIBUTION WIDTH-CV 13.9 % (11.5-14.5)
--- NOTE | 2021-06-29 07:07 | NUR ---
appears to be dozing but awakens easily, bedside shift report received from ALEX Marin
[2021-06-29 07:40] LABS: ALBUMIN 3.2 gm/dL (3.4-4.8); CALCIUM 8.7 mg/dL (8.4-10.2); CREATININE, serum 5.27 mg/dL (0.72-1.25); PHOSPHOROUS 4.4 mg/dL (2.3-4.7); POTASSIUM 4.3 mmol/L (3.5-4.5)
--- NOTE | 2021-06-29 08:15 | NUR ---
called asking to order breakfast, explained to him he needs to not eat for a test later, therapy in to work with patient
--- NOTE | 2021-06-29 08:45 | NUR ---
to rn cardiac cath for myrna scan
--- NOTE | 2021-06-29 09:49 | NUR ---
remains out of room for myrna scan
--- NOTE | 2021-06-29 10:20 | NUR ---
returned from myrna scan and taken directly to dialysis, son here to visit
--- NOTE | 2021-06-29 10:49 | NUR ---
in dialysis and son in to visit, given am meds, will complete assessment after dialysis
--- NOTE | 2021-06-29 13:38 | NUR ---
Patient tolerated Hd tx with 4.9L of fluid removed today. Next planned HD tx on Tuesday07/01/21 @ 0830.
--- NOTE | 2021-06-29 14:04 | NUR ---
returned from dialysis and assited into chair, is too tired right now to eat, son at bedside
--- NOTE | 2021-06-29 14:18 | NUR ---
report given to ALEX Ventura
--- NOTE | 2021-06-29 14:26 | NUR ---
social worker palliative care in visiting with patient and his son
--- NOTE | 2021-06-29 14:42 | NUR ---
PT is recommending that the patient will likely need IPR. SW met with the patient and his son, Edwar, to discuss their recommendation. The patient appeared sleepy and would fall asleep during conversation. Edwar agrees that the patient will likely need rehab before going straight home. He is interested in our IPR and the local facilities. Edwar confirms that he is the patient's only child. He states that he lives in [place] and planned on returning back to [facility] for work. He plans to come back to the [facility] this weekend. MICHAEL consulted IPR Director. MICHAEL contacted and faxed a referral to [facility], [facility], and [facility]. Awaiting screens. *Discharge plan: post-acute rehab*
--- NOTE | 2021-06-29 18:31 | NUR ---
Nurse encouraged the patient to eat dinner, the patient ate 2 bites of dinner. A&Ox3. VSS. IV CDI, fluids infusing. Reports pain in back r/t laying in bed. Call light within reach. Bed alarm on
--- NOTE | 2021-06-30 02:15 | NUR ---
Report received from ALEX Ventura. Patient had dialysis 06/29, returned to room before the start of material handler 1st shift. Pt has been tired throughout the shift. Pt did not eat much of his evening meal and has no consumed many oral fluids. Full body assessment and medication administration completed without difficulty. Patient is A&Ox4 and has been pleasant. IV in L shoulder is currently flushing well, no fluids are running at this time due to fluid restriction. Pt on tele and has kept a normal sinus rhythm thus far this shift. Patient has had no complaints of pain and has had intermittent heat to his upper back for comfort. Pt has had minimal urine output thus far, 4.9 L removed from dialysis 06/29. PCT bladder scanned pt and approximately 310ml of urine was detected; discussed with charge nurse and she determined that no intervention was needed at this time. Pt denies the need to urinate and feels no discomfort. All other needs met at this time, call light within reach.
[2021-06-30 04:16] VITALS: BP 126/98; PULSE 93; TEMP 98.1
[2021-06-30 07:02] LABS: BASO % 0.2 % (0.0-2.0); EOS # 0.2 K/mm3 (0.0-0.7); EOS % 1.4 % (0.0-4.0); GRAN # 8.9 K/mm3 (1.4-6.5); GRAN % 76.5 % (42.2-75.2); HEMATOCRIT 47.1 % (42.0-52.0); HEMOGLOBIN 15.4 g/dl (13.5-18.0); LYMPH # 1.1 K/mm3 (1.2-3.4); LYMPH % 9.7 % (20.0-51.0); MEAN CELL VOLUME 99 fl (80.0-100.0); MEAN CORPUSCULAR HEMOGLOBIN 32 pg (27-31); MEAN CORPUSCULAR HGB CONC 33 g/dl (33.0-37.0); MEAN PLATELET VOLUME 10.6 fl (7.4-10.4); MONO # 1.4 K/mm3 (0.1-0.6); MONO % 11.6 % (1.7-9.3); PLATELET COUNT 180 K/mm3 (130-400); RED BLOOD COUNT 4.76 M/mm3 (4.20-5.60); REDCELL DISTRIBUTION WIDTH-CV 13.8 % (11.5-14.5)
[2021-06-30 07:22] LABS: ALBUMIN 3.2 gm/dL (3.4-4.8); CREATININE, serum 4.2 mg/dL (0.72-1.25); PHOSPHOROUS 3.9 mg/dL (2.3-4.7); POTASSIUM 4.4 mmol/L (3.5-4.5)
[2021-06-30 08:07] VITALS: BP 148/81; PULSE 70; TEMP 97.8
--- NOTE | 2021-06-30 09:19 | NUR ---
PT RESTING IN BED. MORNING MEDICATIONS GIVEN. SHIFT ASSESSMENT COMPLETED. PT COMPLAINING OF BACK PAIN. BED CHANGE COMPLETED. WILL CONTINUE TO MONITOR.
[2021-06-30 11:56] VITALS: BP 141/73; PULSE 86; TEMP 97.9
--- NOTE | 2021-06-30 14:17 | NUR ---
MICHAEL confirmed with ROZINA Wallis, with Dr. Flaherty that the patient's chair time is M/W/F 2:45-6:30 PM. SW notified and faxed updates to [facility], [facility], and [facility]. Awaiting screens.
[2021-06-30 16:22] VITALS: BP 155/83; PULSE 80; TEMP 98.2
--- NOTE | 2021-06-30 19:00 | NUR ---
RECEIVED CHANGE OF SHIFT REPORT FROM DAY SHIFT RN.
[2021-06-30 20:55] VITALS: BP 117/70; BP 183/93; PULSE 80; PULSE 88; TEMP 97.5; TEMP 97.8
[2021-06-30 23:21] VITALS: BP 137/77; PULSE 76; TEMP 99.5
[2021-07-01 03:47] VITALS: BP 148/78; BP 248/78; PULSE 115; TEMP 97.5
[2021-07-01 03:52] VITALS: PULSE 98
[2021-07-01 05:59] LABS: BASO % 0.2 % (0.0-2.0); EOS # 0.2 K/mm3 (0.0-0.7); EOS % 1.8 % (0.0-4.0); GRAN # 8.9 K/mm3 (1.4-6.5); GRAN % 73.4 % (42.2-75.2); HEMATOCRIT 47.6 % (42.0-52.0); HEMOGLOBIN 15.3 g/dl (13.5-18.0); LYMPH # 1.5 K/mm3 (1.2-3.4); LYMPH % 12.8 % (20.0-51.0); MEAN CELL VOLUME 100 fl (80.0-100.0); MEAN CORPUSCULAR HEMOGLOBIN 32 pg (27-31); MEAN CORPUSCULAR HGB CONC 32 g/dl (33.0-37.0); MEAN PLATELET VOLUME 10.1 fl (7.4-10.4); MONO # 1.4 K/mm3 (0.1-0.6); MONO % 11.4 % (1.7-9.3); PLATELET COUNT 164 K/mm3 (130-400); RED BLOOD COUNT 4.77 M/mm3 (4.20-5.60); REDCELL DISTRIBUTION WIDTH-CV 13.9 % (11.5-14.5)
[2021-07-01 06:11] LABS: INR 1.4 (0.8-3.0); PROTHROMBIN TIME 15.7 SECONDS (9.7-12.8)
[2021-07-01 06:18] LABS: ALBUMIN 3.1 gm/dL (3.4-4.8); CALCIUM 9.1 mg/dL (8.4-10.2); CREATININE, serum 4.88 mg/dL (0.72-1.25); PHOSPHOROUS 3.7 mg/dL (2.3-4.7); POTASSIUM 4.4 mmol/L (3.5-4.5)
--- NOTE | 2021-07-01 06:39 | NUR ---
CHANGE OF SHIFT REPORT GIVEN TO DAY SHIFT DARSHAN JOHNSON.
[2021-07-01 07:55] VITALS: BP 124/79; PULSE 115; TEMP 97.8
--- NOTE | 2021-07-01 09:19 | NUR ---
PT RESTING IN BED. MORNING MEDICATIONS GIVEN. SHIFT ASSESSSMENT COMPLETED. PT COMPLAINING ONLY OF BACK PAIN. PT AMBULATING WELL THIS AM. IS AT DIALYSIS AT THIS TIME. WILL CONTINUE TO MONITOR.
[2021-07-01] MEDS ORDERED: LEVAQUIN 5500 MG/TA1 PO (11:55)
[2021-07-01 12:00] VITALS: BP 113/85; PULSE 58; TEMP 97.1
[2021-07-01 12:49] VITALS: BP 134/75; PULSE 89; TEMP 97.1
--- NOTE | 2021-07-01 13:34 | NUR ---
PATIENT TOLERATED HD TX WITH 4L OF FLUID REMOVED TODAY. NEXT PLANNED HD TX ON Tuesday07/03/21 @ [facility] IN [place].
--- NOTE | 2021-07-01 14:19 | NUR ---
[facility] and [facility] both report that they would not be able to accomodate the patient's current chair time. Ghassan, at [facility], reports that they are able to accomodate the chair time and accept the patient today. MICHAEL met with the patient to update. The patient is agreeable to going to [facility]. MICHAEL presented and read the IM form outloud to the patient. The patient verbalized understanding and of discharge today and signed the form. MICHAEL placed a copy in the patient's room. MICHAEL contacted and updated the patient's son, Edwar. Edwar is also in agreement to the plan. He inquired about transportation services to dialysis after the patient returns home from [facility]. MICHAEL informed him how the patient has Medicaid and they typically provide transportation services. Edwar verbalized understanding. The patient is to discharge today, 07/01, to [facility] for a skilled stay. Transportation was scheduled at 1400, via [facility]. MICHAEL informed the patient, his RN, and son of the time. No additional needs at this time.
--- NOTE | 2021-07-01 14:47 | NUR ---
IV INFILTRATED WITH LEVAQUIN INFUSING. IV D/C, PLANNING TO D/C PT SOON.
--- NOTE | 2021-07-01 15:43 | NUR ---
PT ESCORTED DOWN WITH [facility]. WILL D/C FROM SYSTEM.
== END 2021-07-01 15:43 | DRG 871 ==
LOC: COL.ER 17:03 → MEDICAL 19:13
PROVIDERS: Nurse Practitioner Family; Registered Nurse; ADMIT Internal Medicine Nephrology
PROC: 5A1D70Z Performance of Urinary Filtration, Intermittent, Less than 6 Hours Per Day (ICD-10-PCS; principal; 2021-07-01)
DX: A41.9 Sepsis, unspecified organism (principal); N18.6 End stage renal disease; S22.089A Unspecified fracture of T11-T12 vertebra, initial encounter for closed fracture; I13.2 Hypertensive heart and chronic kidney disease with heart failure and with stage 5 chronic kidney disease, or end stage renal disease; I42.0 Dilated cardiomyopathy; I48.20 Chronic atrial fibrillation, unspecified; J98.11 Atelectasis; I50.22 Chronic systolic (congestive) heart failure; R09.89 Other specified symptoms and signs involving the circulatory and respiratory systems; M48.061 Spinal stenosis, lumbar region without neurogenic claudication; D64.9 Anemia, unspecified; E78.5 Hyperlipidemia, unspecified; I48.0 Paroxysmal atrial fibrillation; N40.0 Benign prostatic hyperplasia without lower urinary tract symptoms; I27.20 Pulmonary hypertension, unspecified; M19.90 Unspecified osteoarthritis, unspecified site; R65.20 Severe sepsis without septic shock; I08.1 Rheumatic disorders of both mitral and tricuspid valves; Z20.822 Contact with and (suspected) exposure to COVID-19; Z79.01 Long term (current) use of anticoagulants; Z86.73 Personal history of transient ischemic attack (TIA), and cerebral infarction without residual deficits; Z85.828 Personal history of other malignant neoplasm of skin; Z87.891 Personal history of nicotine dependence; Z99.2 Dependence on renal dialysis
CPT/HCPCS: A9500; J1644; J1956; J2785; J7030

== ENCOUNTER 2021-08-31 15:00 | Emergency (ER) | payer MEDICARE, MEDICAID ==
[~2021-08-31] VITALS: Ht 180.3 cm; Wt 75.0 kg
[~2021-08-31 15:00] MED LIST changes: +COREG 6.256.25 MG/TA PO; +LEVAQUIN 5500 MG/TA1 PO
[2021-08-31 15:03] VITALS: TEMP 97.1
[2021-08-31 16:33] LABS: BASO # 0.1 K/mm3 (0.0-0.2); BASO % 0.4 % (0.0-2.0); EOS # 0.3 K/mm3 (0.0-0.7); EOS % 1.8 % (0.0-4.0); GRAN # 11.6 K/mm3 (1.4-6.5); GRAN % 79.4 % (42.2-75.2); HEMATOCRIT 35.4 % (42.0-52.0); HEMOGLOBIN 11.6 g/dl (13.5-18.0); LYMPH # 1.2 K/mm3 (1.2-3.4); LYMPH % 8.2 % (20.0-51.0); MEAN CELL VOLUME 97 fl (80.0-100.0); MEAN CORPUSCULAR HEMOGLOBIN 32 pg (27-31); MEAN CORPUSCULAR HGB CONC 33 g/dl (33.0-37.0); MEAN PLATELET VOLUME 10.5 fl (7.4-10.4); MONO # 1.5 K/mm3 (0.1-0.6); MONO % 9.9 % (1.7-9.3); PLATELET COUNT 225 K/mm3 (130-400); RED BLOOD COUNT 3.64 M/mm3 (4.20-5.60); REDCELL DISTRIBUTION WIDTH-CV 14.1 % (11.5-14.5)
[2021-08-31 16:43] LABS: INR 1.2 (0.8-3.0); PROTHROMBIN TIME 13.3 SECONDS (9.7-12.8)
[2021-08-31 16:46] LABS: CALCIUM 9.1 mg/dL (8.4-10.2); CREATININE, serum 4.93 mg/dL (0.72-1.25); POTASSIUM 4.4 mmol/L (3.5-4.5)
[2021-08-31 17:52] VITALS: BP 141/89; PULSE 87
== END 2021-08-31 17:55 | disposition home or self-care (01) ==
LOC: COL.ER 15:00
PROVIDERS: Personal Emergency Response Attendant
DX: S60.512A Abrasion of left hand, initial encounter (principal); S60.511A Abrasion of right hand, initial encounter; S00.01XA Abrasion of scalp, initial encounter; N18.9 Chronic kidney disease, unspecified; I50.9 Heart failure, unspecified; Z79.01 Long term (current) use of anticoagulants; W18.30XA Fall on same level, unspecified, initial encounter

== ENCOUNTER 2021-09-07 10:13 | Emergency (ER) | payer MEDICARE, MEDICAID ==
[~2021-09-07] VITALS: Ht 180.3 cm; Wt 75.0 kg
[2021-09-07 10:20] VITALS: TEMP 98.9
[2021-09-07 10:45] VITALS: BP 142/91; PULSE 96
== END 2021-09-07 10:33 ==
LOC: COL.ER 10:13
DX: S50.312A Abrasion of left elbow, initial encounter (principal); S50.311A Abrasion of right elbow, initial encounter; N18.9 Chronic kidney disease, unspecified; S80.812A Abrasion, left lower leg, initial encounter; S80.811A Abrasion, right lower leg, initial encounter; Z28.310 Unvaccinated for COVID-19; Z99.2 Dependence on renal dialysis; W01.0XXA Fall on same level from slipping, tripping and stumbling without subsequent striking against object, initial encounter; Y92.009 Unspecified place in unspecified non-institutional (private) residence as the place of occurrence of the external cause; S00.91XA Abrasion of unspecified part of head, initial encounter

== ENCOUNTER 2021-09-07 15:18 | Emergency (ER) | payer MEDICARE, MEDICAID ==
[~2021-09-07] VITALS: Ht 165.1 cm; Wt 75.0 kg
[2021-09-07 15:23] VITALS: BP 117/86; TEMP 97.4
[2021-09-07 16:18] LABS: BASO # 0.1 K/mm3 (0.0-0.2); BASO % 0.4 % (0.0-2.0); EOS # 0.7 K/mm3 (0.0-0.7); EOS % 4.8 % (0.0-4.0); GRAN # 10.1 K/mm3 (1.4-6.5); GRAN % 74.3 % (42.2-75.2); HEMATOCRIT 39.8 % (42.0-52.0); HEMOGLOBIN 13.1 g/dl (13.5-18.0); LYMPH # 1.3 K/mm3 (1.2-3.4); LYMPH % 9.5 % (20.0-51.0); MEAN CELL VOLUME 95 fl (80.0-100.0); MEAN CORPUSCULAR HEMOGLOBIN 31 pg (27-31); MEAN CORPUSCULAR HGB CONC 33 g/dl (33.0-37.0); MEAN PLATELET VOLUME 9.4 fl (7.4-10.4); MONO # 1.4 K/mm3 (0.1-0.6); MONO % 10.5 % (1.7-9.3); PLATELET COUNT 289 K/mm3 (130-400); REDCELL DISTRIBUTION WIDTH-CV 14.2 % (11.5-14.5)
--- NOTE | 2021-09-07 16:35 | NUR ---
mold worker notified by ED staff that the patient was here for a visit this morning, left to go to dialysis and is now on his way back via EMS. Patient has been previously seen in this ER for a fall on 08/31. SW met with patient who verbalized " my legs make me fall". Verified with the patient that he does live at home alone and utilizes a walker to assist with ambulation. When asked if he was still seeing for PCP needs, the patient replied " i haven't seen him in years". States he only see's for healthcare needs. Patient is willing to seek placement for therapy but verbalizes that he does not want to go back to [facility]. He would like a referral faxed to [facility]. Patient's clinical information faxed to [facility].
[2021-09-07 16:39] LABS: ALBUMIN 3.6 gm/dL (3.4-4.8); BILIRUBIN,TOTAL 0.9 mg/dL (0.2-1.2); CALCIUM 9.7 mg/dL (8.4-10.2); CREATININE, serum 5.11 mg/dL (0.72-1.25); POTASSIUM 4.3 mmol/L (3.5-4.5); TOTAL PROTEIN 7.6 gm/dL (6.2-8.1)
[2021-09-07 17:30] LABS: INR 1.1 (0.8-3.0); PROTHROMBIN TIME 12.6 SECONDS (9.7-12.8)
[2021-09-07 17:41] VITALS: PULSE 93
--- NOTE | 2021-09-09 13:25 | NUR ---
(LATE ENTRY) food service utility worker received phone call from Damián at [facility] on the morning of 09/08 stating that they were able to accept this patient and that they were able to get his dialysis chair time changed to [id number] to accommodate their transportation team/time. MICHAEL informed Damián that the patient wasn't admitted, was not in the ER but had not been discharged and that i would need to see where the patient was at. Phone call made to Dara at [facility] to see if they had the patient. Dara informed this SW that the transportation team was contacted the previous evening to pick the patient up and transport him to the [facility]. Patient was transported without a referral, acceptance, covid swab or order from our team. Dara states that she was going to talk with the patient to see if he was ok with staying at [facility]. This SW informed her that [facility] was looking at the patient's referral and that Damián had called me stating that they were able to accept this patient and with the new dialysis chair time. Damián with [facility] updated. operations manager assistant Jenifer Peck and insurance risk analyst Jeannie Small notified. Event report made. Dara with [facility] called stating that after speaking with the patient and his son they are both ok with the patient staying at [facility].
== END 2021-09-07 17:15 ==
LOC: COL.ER 15:18
PROVIDERS: Nurse Practitioner Family
DX: N18.9 Chronic kidney disease, unspecified (principal); R79.1 Abnormal coagulation profile; R29.6 Repeated falls; I48.91 Unspecified atrial fibrillation; I50.9 Heart failure, unspecified; Z79.01 Long term (current) use of anticoagulants; Z99.2 Dependence on renal dialysis; Z28.310 Unvaccinated for COVID-19

== ENCOUNTER 2021-09-09 11:41 | Outpatient (CLI) | payer MEDICARE, MEDICAID ==
[2021-09-09] VITALS (7 sets, daily range): BP systolic 113–146; BP diastolic 79–99; PULSE 60–84; TEMP 97.4
[~2021-09-09] VITALS: Ht 165.1 cm; Wt 63.8 kg
[2021-09-09] MEDS ORDERED: IMODIUM 2MG CAPS2 MG PO (12:18)
[2021-09-09 14:03] LABS: INR 1.1 (0.8-3.0); PROTHROMBIN TIME 12.8 SECONDS (9.7-12.8)
--- NOTE | 2021-09-09 14:40 | NUR ---
SEE MERGE FOR ALL PERTAINING ASSESSMENTS, INTERVENTIONS, AND VITAL SIGNS.
--- NOTE | 2021-09-09 18:08 | NUR ---
Pt back to [facility] from [facility] delivery [facility]. access to rt arm fistual dressed with clot assisting dressing, no bleeding or swelling noted. Dialysis catheter to rt neck/chest in place, gauze dressings in place at rt neck and rt chest. neck dressing clean and dry, dressing to rt chest has some pink drainage, no active bleeding. wctm. Pt is awake and alert, dinner has been ordered. call light in reach.
--- NOTE | 2021-09-09 19:30 | NUR ---
Pt ready to go. I have called report to Patricia JOHNSON at [facility]. Transportation from [facility] is waiting. I reviewed dc instructions with pt regarding dialysis cath, fistulogram and sedation. Pt will have dialysis tommorow afternoon per Patricia JOHNSON. IV is dc'd with cath intact, dressing applied. Pt escorted to exit via wheelchair.
== END 2021-09-09 19:58 | disposition home or self-care (01) ==
LOC: COL.CAR 11:41
PROVIDERS: Radiology Diagnostic Radiology
DX: N18.6 End stage renal disease (principal); Z87.891 Personal history of nicotine dependence
CPT/HCPCS: C1725; C1751; C1757; C1769; C1894; J1644; J2250; J2997; J3010; Q9967

== ENCOUNTER → 2021-10-15 | Day surgery (SDC) | payer MEDICARE, MEDICAID ==
[2021-10-15] VITALS (7 sets, daily range): BP systolic 152–188; BP diastolic 37–97; PULSE 59–98; TEMP 97.8–98
[~2021-10-15] VITALS: Ht 180.3 cm; Wt 65.9 kg
[~2021-10-15] MED LIST changes: +IMODIUM 2MG CAPS2 MG PO; +NORCO 325 MG-51 TAB PO
[2021-10-15 09:45] LABS: BASO # 0.1 K/mm3 (0.0-0.2); BASO % 0.8 % (0.0-2.0); EOS # 0.5 K/mm3 (0.0-0.7); EOS % 4.6 % (0.0-4.0); GRAN # 7.6 K/mm3 (1.4-6.5); GRAN % 69.3 % (42.2-75.2); HEMATOCRIT 35.9 % (42.0-52.0); HEMOGLOBIN 11.4 g/dl (13.5-18.0); LYMPH # 1.7 K/mm3 (1.2-3.4); LYMPH % 15.8 % (20.0-51.0); MEAN CELL VOLUME 100 fl (80.0-100.0); MEAN CORPUSCULAR HEMOGLOBIN 32 pg (27-31); MEAN CORPUSCULAR HGB CONC 32 g/dl (33.0-37.0); MEAN PLATELET VOLUME 10.5 fl (7.4-10.4); PLATELET COUNT 259 K/mm3 (130-400); RED BLOOD COUNT 3.58 M/mm3 (4.20-5.60); REDCELL DISTRIBUTION WIDTH-CV 14.4 % (11.5-14.5)
[2021-10-15 09:52] LABS: INR 1.1 (0.8-3.0); PROTHROMBIN TIME 13.1 SECONDS (9.7-12.8)
[2021-10-15 09:58] LABS: CALCIUM 9.2 mg/dL (8.4-10.2); CREATININE, serum 3.25 mg/dL (0.72-1.25); POTASSIUM 4.8 mmol/L (3.5-4.5)
--- NOTE | 2021-10-15 16:50 | NUR ---
PATIENT STABLE AND VITAL SIGNS WITHIN NORMAL LIMITS AT DISCHARGE, WITH THE EXCEPTION OF BLOOD PRESSURE WHICH SYSTOLIC WAS ELEVATED AND DIASTOLIC WAS LOW; THE BLOOD PRESSURE CUFF WAS ON THE PATIENT'S LEFT LOWER LEG PATIENT'S ARMS WERE NOT AVAILBLE. PATIENT WAS TAKEN OUT IN HIS OWN WHEELCHAIR AND LOADED UP IN THE [facility] AND TAKEN BACK TO [facility].
== END ==
LOC: SDCO 08:23
PROVIDERS: Surgery
DX: N18.6 End stage renal disease (principal); I13.2 Hypertensive heart and chronic kidney disease with heart failure and with stage 5 chronic kidney disease, or end stage renal disease; I50.20 Unspecified systolic (congestive) heart failure; Z95.0 Presence of cardiac pacemaker; Z85.828 Personal history of other malignant neoplasm of skin; Z79.01 Long term (current) use of anticoagulants; Z99.2 Dependence on renal dialysis
CPT/HCPCS: C1768; J0690; J1644; J2704; J7030

== ENCOUNTER → 2021-11-16 | Outpatient (CLI) | payer MEDICARE, MEDICAID ==
[~2021-11-16] VITALS: Ht 180.3 cm; Wt 66.0 kg
[2021-11-16 08:11] VITALS: BP 169/82; PULSE 83; TEMP 97.7
[2021-11-16 09:12] VITALS: BP 160/81; PULSE 63
== END ==
LOC: COL.RAD 07:43
DX: Z49.01 Encounter for fitting and adjustment of extracorporeal dialysis catheter (principal)

== ENCOUNTER → 2022-04-23 | Outpatient (REF) | payer MEDICARE, MEDICAID ==
[2022-04-23 14:10] LABS: CALCIUM 9.4 mg/dL (8.4-10.2); CREATININE, serum 7.11 mg/dL (0.72-1.25); POTASSIUM 4.6 mmol/L (3.5-4.5)
[2022-04-23 14:14] LABS: HEMOGLOBIN 12.5 g/dl (13.5-18.0); MEAN CELL VOLUME 99 fl (80.0-100.0); MEAN CORPUSCULAR HEMOGLOBIN 33 pg (27-31); MEAN CORPUSCULAR HGB CONC 33 g/dl (33.0-37.0); PLATELET COUNT 165 K/mm3 (130-400); RED BLOOD COUNT 3.84 M/mm3 (4.20-5.60); REDCELL DISTRIBUTION WIDTH-CV 13.3 % (11.5-14.5)
[2022-04-23 15:39] LABS: BAND 6 % (0-10); EOSINOPHIL 3 % (0-4); LYMPHOCYTE 27 % (20.0-51.0); NEUTROPHILS 56 % (42.0-75.2); PLATELET ESTIMATE NORMAL (NORMAL)
== END ==
LOC: ZCOL.LAB 11:50
PROVIDERS: Internal Medicine
DX: R53.83 Other fatigue (principal); R09.89 Other specified symptoms and signs involving the circulatory and respiratory systems